=== PATIENT | male | born 1940 | race Caucasian/White ===

== ENCOUNTER 2019-05-07 07:19 | Emergency (ER) | payer OTHER ==
[~2019-05-07] VITALS: Ht 175.3 cm; Wt 81.6 kg
[~2019-05-07 07:19] MED LIST: ALLO100T PO; AMAN100C16 PO; DOXA2TAB PO; LEVO25TA7 PO; LOSA25TA3 PO
[2019-05-07 07:25] VITALS: BP_SYST 153
--- NOTE | 2019-05-07 07:28 | NUR ---
Patient to ER bed 07 to gown for evaluation. Side rails up.
--- NOTE | 2019-05-07 07:30 | NUR ---
Pt brought by self , ambulatory , A&OX4, pt presents to ER with dizziness x 3 weeks getting worse yesterday , pt respirations are even and unlabored, skin pink and warm, cap refill <3.
--- NOTE | 2019-05-07 07:32 | NUR ---
Dr Gardner at bedside examining patient
[2019-05-07] MEDS ORDERED: CARB1TAB10 PO (07:47)
[2019-05-07 08:16] LABS: BASOPHILS % (AUTO) 0.8 % (0.0-2.0); EOSINOPHILS # (AUTO) 0.2 K/uL (0.0-0.4); EOSINOPHILS % (AUTO) 3.7 % (0.0-4.0); HEMATOCRIT 38.4 % (36-54); HEMOGLOBIN 12.9 g/dL (14.0-18.0); LYMPHOCYTES # (AUTO) 1.6 K/uL (1.0-5.5); LYMPHOCYTES % (AUTO) 28.1 % (20.5-51.5); MEAN CORPUSCULAR HEMOGLOBIN 32 pg (27-31); MEAN CORPUSCULAR HGB CONC 34 % (32-36); MEAN CORPUSCULAR VOLUME 96 fL (79.0-98.0); MONOCYTES # (AUTO) 0.4 K/uL (0.0-1.0); MONOCYTES % (AUTO) 7.1 % (1.7-9.3); NEUTROPHILS # (AUTO) 3.5 K/uL (1.8-7.7); NEUTROPHILS % (AUTO) 60.3 % (40.0-70.0); PLATELET COUNT (AUTO) 196 K/uL (130-430); RED BLOOD CELL COUNT(AUTO) 4.01 MIL/uL (4.2-6.2); RED CELL DISTRIBUTION WIDTH 14.2 % (9.0-15.0); WHITE BLOOD COUNT (AUTO) 5.7 K/uL (4.8-10.8)
[2019-05-07 08:24] LABS: ANION GAP 6 (5-15); CALCIUM 9.3 mg/dL (8.4-11.0); CHLORIDE 109 mmol/L (98-107); CREATININE 1.72 mg/dL (0.55-1.30); GLUCOSE 96 mg/dL (70-99); POTASSIUM 4.3 mmol/L (3.5-5.1); SODIUM SERUM 141 mmol/L (136-145); UREA NITROGEN, BLOOD 23 mg/dL (8-21)
[2019-05-07 08:26] LABS: PROTHROMBIN TIME 9.8 SECS (9.5-12.5)
[2019-05-07 08:39] LABS: ALANINE AMINOTRANSFERASE 9 U/L (12-78); ALBUMIN 3.4 g/dL (3.4-4.8); ASPARTATE AMINOTRANSFERASE 13 U/L (10-37); TOTAL BILIRUBIN 0.6 mg/dL (0.0-1.0)
--- NOTE | 2019-05-07 09:05 | NUR ---
Pt resting at this time, VSS, respirations even and unlabored.
[2019-05-07 09:28] VITALS: BP_SYST 128
--- NOTE | 2019-05-07 09:28 | NUR ---
Patient given written and verbal discharge instructions and verbalizes understanding. ER MD discussed with patient the results and treatment provided. Patient in stable condition. ID arm band removed. Rx of Antivert given. Patient educated on pain management and to follow up with PMD. Pain Scale 2/10 toerable for patient . Opportunity for questions provided and answered. Medication side effect fact sheet provided.
== END 2019-05-07 09:28 | disposition home or self-care (01) ==
LOC: SED 07:19
DX: R42 Dizziness and giddiness (principal); G20 Parkinson's disease; Z79.899 Other long term (current) drug therapy
CPT/HCPCS: 36415; 70450-TC; 71045; 80053; 84443-TC; 84484; 85025; 85610-TC; 85730-TC; 93005; 99284

== ENCOUNTER 2020-12-03 06:39 | Observation (INO) | payer OTHER, SELFPAY ==
[~2020-12-03] VITALS: Ht 177.8 cm; Wt 78.9 kg
[2020-12-03 06:39] VITALS: BP_SYST 155
[~2020-12-03 06:39] MED LIST changes: -AMAN100C16 PO; +CARB1TAB10 PO
--- NOTE | 2020-12-03 06:46 | NUR ---
ER Dr. Jones at bedside examining patient.
--- NOTE | 2020-12-03 06:46 | NUR ---
Patient to ER bed 1 to gown for evaluation. Side rails up.
--- NOTE | 2020-12-03 07:05 | NUR ---
# 20 gauge angiocath placed to LAC. Use of asceptic technique. Opsite placed over site. Blood return noted. Blood for lab drawn from site. Flushed with 10 cc of normal saline. No evidence of infiltration noted. Patient tolerated well.
[2020-12-03 07:22] LABS: BASOPHILS # (AUTO) 0.1 K/uL (0.0-0.2); BASOPHILS % (AUTO) 0.9 % (0.0-2.0); EOSINOPHILS # (AUTO) 0.1 K/uL (0.0-0.4); EOSINOPHILS % (AUTO) 2.3 % (0.0-4.0); HEMATOCRIT 44.3 % (36-54); HEMOGLOBIN 14.8 g/dL (14.0-18.0); LYMPHOCYTES # (AUTO) 0.8 K/uL (1.0-5.5); LYMPHOCYTES % (AUTO) 13.3 % (20.5-51.5); MEAN CORPUSCULAR HEMOGLOBIN 32 pg (27-31); MEAN CORPUSCULAR HGB CONC 33 % (32-36); MEAN CORPUSCULAR VOLUME 95 fL (79.0-98.0); MONOCYTES # (AUTO) 0.5 K/uL (0.0-1.0); NEUTROPHILS # (AUTO) 4.4 K/uL (1.8-7.7); NEUTROPHILS % (AUTO) 75.5 % (40.0-70.0); PLATELET COUNT (AUTO) 180 K/uL (130-430); RED BLOOD CELL COUNT(AUTO) 4.66 MIL/uL (4.2-6.2); RED CELL DISTRIBUTION WIDTH 14.4 % (9.0-15.0); WHITE BLOOD COUNT (AUTO) 5.8 K/uL (4.8-10.8)
--- NOTE | 2020-12-03 07:25 | NUR ---
OFF TO CT. PT CALM, ALERT, NO DISTRESS
[2020-12-03 07:31] LABS: ANION GAP 7 (5-15); CALCIUM 9.2 mg/dL (8.4-11.0); CHLORIDE 109 mmol/L (98-107); GLUCOSE 97 mg/dL (70-99); POTASSIUM 4.4 mmol/L (3.5-5.1); SODIUM SERUM 143 mmol/L (136-145); UREA NITROGEN, BLOOD 28 mg/dL (8-21)
[2020-12-03 07:47] LABS: ALANINE AMINOTRANSFERASE 18 U/L (12-78); ALBUMIN 3.7 g/dL (3.4-4.8); ALCOHOL, BLOOD < 3 mg/dL (<10); ASPARTATE AMINOTRANSFERASE 16 U/L (10-37); FREE T4 (FREE THYROXINE) 0.9 ng/dl (0.8-1.5); THYROID STIMULATING HORMONE 2.58 uIu/mL (0.36-3.74); TOTAL BILIRUBIN 0.6 mg/dL (0.0-1.0)
--- NOTE | 2020-12-03 07:47 | NUR ---
CALM, ALERT, CLEAR MENTATION AND SPEECH, SKIN WARM AND DRY. DENIES CP/SOB.
[2020-12-03 07:53] LABS: PROTHROMBIN TIME 9.9 SECS (9.5-12.5)
--- NOTE | 2020-12-03 08:14 | NUR ---
UP STEADY ON HIS FEET URINE OBTAINED
[2020-12-03 08:24] LABS: BILIRUBIN,URINE NEGATIVE (NEGATIVE); BLOOD, URINE 2+ (NEGATIVE); CLARITY/URINE CLEAR (CLEAR); COLOR,URINE YELLOW (YELLOW); GLUCOSE,URINE NEGATIVE (NEGATIVE); KETONES,URINE NEGATIVE (NEGATIVE); LEUKOCYTE ESTERASE ,URINE NEGATIVE (NEGATIVE); NITRITE, URINE NEGATIVE (NEGATIVE); PH,URINE 5.5 (5.0-8.0); PROTEIN URINE NEGATIVE (NEGATIVE); UROBILINOGEN,URINE 0.2 (0.2-1.0)
[2020-12-03 08:35] LABS: BACTERIA,URINE FEW /HPF (None Seen); MUCUS,URINE 1+ /LPF (None Seen); WBC,URINE 0-3 /HPF (0-3)
[2020-12-03 08:36] LABS: BARBITURATE, URINE NEGATIVE (NEG <=200); BENZODIAZEPINE, URINE NEGATIVE (NEG <=150); CANNABINOID, URINE NEGATIVE (NEG <=50); COCAINE, URINE NEGATIVE (NEG <=150); METHAMPHETAMINES SCREEN,URINE NEGATIVE (NEG <=500); PHENCYCLIDINE SCREEN,URINE NEGATIVE (NEG <=25); URINE AMPHETAMINE NEGATIVE (NEG <=500); URINE METHADONE NEGATIVE (NEG <=200)
[2020-12-03 08:37] LABS: OPIATE, URINE NEGATIVE (NEG <=100); UR TRICYCLIC ANTIDEPRESSANTS NEGATIVE (NEG <=300); URINE OXYCODONE SCREEN NEGATIVE (NEG <=100); URINE PROPOXYPHENE SCREEN NEGATIVE (NEG <=300)
[2020-12-03] MEDS ORDERED: ASPIRIN 325 MG TABLET PO ONE (09:15)
--- NOTE | 2020-12-03 09:29 | NUR ---
Patient will be admitted to care of [facility]I. Admitted to TELE unit. Will go to room 108. Belongings list completed. Complete and up to date summary report printed. SBAR report to be given at bedside with opportunity for questions.
--- NOTE | 2020-12-03 09:50 | NUR ---
ADMIT NOTE Received pt from ER to the floor with a diagnosis of syncope. Admission process initiated. patient oriented to pain management, safety and call light-teach back done.
--- NOTE | 2020-12-03 10:01 | NUR ---
CONSULTATION PAGED/CALLED Reason for Consultation: [place] Person Who was Notified: DR GALVAN Consulting Physician: DR GALVAN Zigzag Elastic Attacher Specialty: CARDIO Ordering Physician: [facility] SPOKE TO DR GALVAN IN HOSPITAL
[2020-12-03 10:09] VITALS: BP_SYST 154
[2020-12-03 11:45] VITALS: BP_SYST 129
--- NOTE | 2020-12-03 11:50 | NUR ---
Admission Assessment Notes Patient on room air, stable, left AC 22 gauge patent and without infiltration, denies pain or discomfort, bed in lowest position, brakes locked, call light within reach, and told to call for assistance. Photos taken of bruise on left upper arm and dry scab on left wrist and charted in admission assessment.
--- NOTE | 2020-12-03 13:12 | NUR ---
CONSULTATION PAGED/CALLED Reason for Consultation: [place] Person Who was Notified: DR DUBON Consulting Physician: DR DUBON Passenger Service Supervisor Specialty: NEURO Ordering Physician: [facility]
[2020-12-03] MEDS ORDERED: CARB1TAB21 PO (13:44)
[2020-12-03 16:23] VITALS: BP_SYST 132
--- NOTE | 2020-12-03 16:42 | NUR ---
Call to Dr. Mehta Called Dr. Mehta and left message at his exchange. Call purpose was regarding possible change in patient diet.
[2020-12-03] MEDS: CARBIDOPA/LEVODOPA 25/100 MG TABLET PO SCH ×2 (17:20→20:29)
--- NOTE | 2020-12-03 18:21 | NUR ---
Closing notes Patient sitting in bed, drinking water, A & Ox4, on room air, without signs of respiratory distress, denies pain or shortness of breath, left AC22 gauge saline lock, patent and without signs of infiltration or redness, on fall and safety precautions, bed in lowest position, brakes on, call light within reach, all needs met, will endorse care to shift mgr RN.
--- NOTE | 2020-12-03 18:26 | NUR ---
MD Rounds Spoke with Dr. Retana and confirmed he was aware of neuro consult for patient.
[2020-12-03 20:00] VITALS: BP_SYST 134
[2020-12-03] MEDS ORDERED: DOXAZOSIN MESYLATE 2 MG TABLET PO SCH (21:00)
[2020-12-04 00:26] VITALS: BP_SYST 118
--- NOTE | 2020-12-04 02:24 | NUR ---
Critical Lab Patient's blood culture came back positive for gram positive cocci in clusters Called Dr. Smith. New orders received.
[2020-12-04] MEDS ORDERED: VANCOMYCIN HCL 1 GM/NS PREMIX 250 ML IV ONE (02:45)
[2020-12-04] MEDS ORDERED: VANCOMYCIN HCL 1000 MG/VIAL IV ONE (03:35)
[2020-12-04] MEDS ORDERED: LEVOTHYROXINE SODIUM 0.025 MG TABLET PO SCH (07:00)
--- NOTE | 2020-12-04 07:45 | NUR ---
Opening Pt is sitting up on side of bed at this time. VSS. Pt is alert and oriented. Pt states that he had no overnight events. Pt states that he goes to the bathroom with assist for fall prevention. Pt educated on using call light and pt verbalized understanding. Pt has iv to left ac sl. Pt has no s/s of acute distress. Pt states that he has no pain noted.
[2020-12-04 08:00] VITALS: BP_SYST 116
[2020-12-04] MEDS: CARBIDOPA/LEVODOPA 25/100 MG TABLET PO SCH (08:30)
--- NOTE | 2020-12-04 08:38 | NUR ---
FAXED PT EVAL AND FLOWSHEET TO [facility], TO JUSTIFY PT HOME HEALTH PER [facility]/HCP CM [facility] JUAN M CHATTERJEE.
[2020-12-04] MEDS ORDERED: ALLOPURINOL 100 MG TABLET (ZYLOPRIM) PO SCH (09:00)
--- NOTE | 2020-12-04 09:00 | NUR ---
Physical Therapy PT ambulated with pt. Per PT pt ambulates well and needs no assistance but was encouraged to use call light and wait for staff due to diagnoses. PT stated he assisted pt back to bed and placed the bed alarm back on for patient safety.
[2020-12-04 11:07] VITALS: BP_SYST 116
--- NOTE | 2020-12-04 11:11 | NUR ---
CT Pt off the floor at this time getting a ct of the chest without contrast.
--- NOTE | 2020-12-04 11:26 | NUR ---
Nutrition Update Charly Scale 18 noted. Pt admitted for syncope, TIA. Diet: cardiac BMI: 25 kg/m2 RD to follow per nutrition care standards.
--- NOTE | 2020-12-04 11:30 | NUR ---
CT Pt is back from CT. Pt tolerated well. Will wait for results to assess if pt can be discharged.
[2020-12-04 12:00] VITALS: BP_SYST 121
--- NOTE | 2020-12-04 12:42 | NUR ---
Dr. Lowry paged Dr. Lowry paged at this time to make aware of ct results to assess if pt can be discharged
--- NOTE | 2020-12-04 12:45 | NUR ---
Dr. Lowry returned results from ct given stated to continue and discharge pt
--- NOTE | 2020-12-04 12:51 | NUR ---
Discharge Written and verbal discharge instructions given to pt. Pt verbalized understanding. Iv removed at this time.
--- NOTE | 2020-12-04 14:58 | NUR ---
END TIME LATE ENTRY VANCOMYCIN IV STARTED ON 12/04/20 AT 0349 COMPLETED AND DISCONTINUED ON 12/04/20 AT 0600
--- NOTE | 2020-12-04 15:25 | NUR ---
Discharge Planning: HCP KEYONA Butler made arrangements with [facility] ([phone]) for patient. [facility] will contact patient.
[2020-12-04] MEDS ORDERED: VANCOMYCIN HCL 1,000 MG in NS 250 ML IV SCH (21:00)
== END 2020-12-04 13:40 | disposition home or self-care (01) ==
LOC: SED 06:39 → STU 09:12
PROVIDERS: ADMIT Internal Medicine Hospice and Palliative Medicine; ATTEND Internal Medicine Hospice and Palliative Medicine
DX: R55 Syncope and collapse (principal); Z20.822 Contact with and (suspected) exposure to COVID-19; G20 Parkinson's disease; F02.80 Dementia in other diseases classified elsewhere, unspecified severity, without behavioral disturbance, psychotic disturbance, mood disturbance, and anxiety; I12.9 Hypertensive chronic kidney disease with stage 1 through stage 4 chronic kidney disease, or unspecified chronic kidney disease; N18.4 Chronic kidney disease, stage 4 (severe); G45.9 Transient cerebral ischemic attack, unspecified; N40.0 Benign prostatic hyperplasia without lower urinary tract symptoms; Z87.891 Personal history of nicotine dependence; Z79.899 Other long term (current) drug therapy
CPT/HCPCS: 36415; 70450; 71045; 71250; 76376 ×2; 80053; 80307; 81000; 82962; 83605; 83880; 84439; 84443; 84484; 85025; 85610; 85730; 87040; 87426; 93005; 93880; 96365; 96366; 97116; 97162; 97530; 99285; G0378 ×2; G0482; J3370 ×2; J7050